=== PATIENT | male | born 1980 | race Caucasian/White ===

== ENCOUNTER 2016-03-22 20:12 | Emergency (ER) | payer OTHER ==
--- NOTE | 2016-03-22 20:34 | ED.REPORT ---
HPI-General Illness Date of Service Mar 22, 2016 ED Provider: Dr. Espinoza 36 year old male presents to the ED due to a needle stick to the distal R 2nd finger just ELECTROTYPER. Pt had bleeding initially from the area, but denies any other symptoms. 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 He was stuck by a needle. The needle was reportedly a pre-loaded dirty needle. It was most likely loaded with heroin. Pt would like anti-retroviral prophylaxis. Pt has the name of the IV drug user. Nursing Notes Stated Complaint: NEEDLE STICK Chief Complaint: Post Exposure Body Fluids Nursing Notes Reviewed: Yes Allergies: Coded Allergies: No Known Allergies (Unverified , 03/22/16) No Active Prescriptions or Reported Meds General Time Seen by MD: 20:34 Chief Complaint Other (Needle stick) Hx Obtained From: Patient Arrived By: Walk-in Sudden in Onset?: Yes Onset Occurred: Just prior to arrival Symptom Duration: Since onset Severity: Current: No pain currently Pertinent Negative: Pt denies other symptoms Past Medical History Past Medical History denies Past Surgical History denies Family History non-contributory Smoking History Never Smoker Social History Alcohol Use: Denies alcohol use Drug Use: Denies drug use Ambulatory Status Independent Review of Systems Full Review of Systems Constitutional: Denies: Fever Respiratory: Denies: Shortness of breath Cardiovascular: Denies: Chest pain GI: Denies: Abdominal pain, Diarrhea, Vomiting Skin: Denies Diaphoresis, Denies Rash Neurologic: Denies: Headache Complete sys rev & neg: except as marked. Physical Exam Vital Signs as above Initial VS: Reviewed General/Constitutional: Well-developed, Well-nourished Head / Eyes: Atraumatic, Normocephalic, PERRL ENT: Conjunctiva normal, No scleral icterus Neck: Full range of motion Skin: Warm, Dry Neurologic: Alert, Oriented Psychiatric: Mood/affect normal, Behavior normal, Normal thought content Upper Extremities Upper Extremity / MS: Full range of motion Distal R 2nd finger- At insertion site there was a small amount of bleeding around finger nail. No other findings. 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 Patient was involved in arrest of known IV drug user and went into his bag and was poked by a needle that had been used by the patient earlier. Exposure panel drawn. The needle's lead process engineer was reportedly to be released by corrections officer and they are unsure any history of HIV or hepatitis. Discussed with patient and he would like to be treated for post exposure prophylaxis. I discussed with infectious disease Dr. Bains who recommended Truvada and Isentress 28 days. Patient was given a prepack for 5 days from our pharmacy. Was given prescription for the remaining 23 days. Did professor of counseling, per ID recommendations, that the police officers could give the drug abuser the option of coming in for testing, which if negative could shorten the course of the post-exposure prophylaxis. I have been told We do not have the post exposure prophylaxis packet available at this time therefore I have written an email to our ED Director, Ange cespedes, the patient's information and phone number in order to contact him to complete the necessary paperwork. Patient is agreeable with this plan. Also given him the phone number for our employee health office that he may call if he is not referred from anyone in the next 1-2 days. He may also follow-up with the long term medical personnel for follow-up if desires. Time of Eval: 20:44 Re-Evaluation/Progress Note: Labs drawn. Antiretroviral prophylaxis initiated. Consultation : Referral / Consult Name: John Bains MD Call Returned at: 20:57 Note: Infectious disease: 28 days Truvada daily, and 28 days isentress BID Counseled Regarding: Diagnosis, Lab results, Need for follow-up, When/why to return to ED Discharge & Departure Primary Impression: Needle stick injury Disposition: Home Discharge Condition All VS Reviewed: Yes Condition: Stable Patient Instructions: Needle Stick Injuries (ED) Additional Instructions: You can take the antiretroviral drugs Isentress (two times daily) and Truvada ( daily) for the next 28 days. You were given a pack for the first 5 days, but you will need to go to the pharmacy to fill the prescription for the last 23 days. Call employee [facility] in 1-2 days if you have not heard from them. Referrals: NOPCP (PCP) Scribe Attestation Portions of this note were transcribed by Anita Hilario. I, (Dr. Espinoza) personally performed the history, physical exam and medical decision-making; I reviewed and confirmed the accuracy of the information in the transcribed note. Signed by: Anita Hilario. 03/22/2016, 2113 Sung Espinoza MD Mar 22, 2016 20:34 Anita Hilario Mar 22, 2016 20:47
[2016-03-22] MEDS ORDERED: Emtricitabine-Teno 200 mg-300 mg Tablet PO SCH (22:00)
[2016-03-23] MEDS ORDERED: Emtricitabine-Teno 200 mg-300 mg Tablet PO SCH (08:30)
== END 2016-03-22 21:48 | disposition home or self-care (01) ==
LOC: SED 20:12
DX: S61.330A Puncture wound without foreign body of right index finger with damage to nail, initial encounter (principal); W46.1XXA Contact with contaminated hypodermic needle, initial encounter; Y99.0 Civilian activity done for income or pay; Y92.69 Other specified industrial and construction area as the place of occurrence of the external cause; Y92.410 Unspecified street and highway as the place of occurrence of the external cause
CPT/HCPCS: 36415; 86706; 99283; G0433